=== PATIENT | male | born 1995 | race Caucasian/White ===

== ENCOUNTER 2018-07-04 13:53 | Emergency (ER) | payer OTHER ==
[~2018-07-04] VITALS: Ht 172.7 cm; Wt 74.8 kg
[2018-07-04] MEDS ORDERED: KEFLEX500 M1 PO ×2 (16:03→16:08)
[2018-07-04] MEDS ORDERED: TRAMADOL 50 MG50 MG PO ×2 (16:03→16:08)
[2018-07-04] MEDS ORDERED: IBUPROFEN 600600 M1 PO ×2 (16:03→16:08)
[2018-07-04 16:26] VITALS: BP 125/70
== END 2018-07-04 16:26 | disposition home or self-care (01) ==
LOC: M.ERS 13:53
DX: S61.401A Unspecified open wound of right hand, initial encounter (principal); W32.0XXA Accidental handgun discharge, initial encounter; Y93.89 Activity, other specified; Y92.89 Other specified places as the place of occurrence of the external cause; Y99.8 Other external cause status; Z88.1 Allergy status to other antibiotic agents

== ENCOUNTER 2020-03-15 10:49 | Emergency (ER) | payer BC ==
[~2020-03-15] VITALS: Ht 172.7 cm; Wt 83.9 kg
[~2020-03-15 10:49] MED LIST: IBUPROFEN 600600 M1 PO; KEFLEX500 M1 PO; TRAMADOL 50 MG50 MG PO
[2020-03-15] MEDS ORDERED: NORCO 5-325 TA1 EAC2 PO (11:18)
[2020-03-15] MEDS ORDERED: FLEXERIL PO (11:18)
[2020-03-15] MEDS ORDERED: IBUPROFEN 800800 M1 PO (11:18)
[2020-03-15 11:26] VITALS: BP 120/78
== END 2020-03-15 11:28 | disposition home or self-care (01) ==
LOC: M.ERS 10:49
DX: S13.4XXA Sprain of ligaments of cervical spine, initial encounter (principal); Z88.1 Allergy status to other antibiotic agents; X58.XXXA Exposure to other specified factors, initial encounter; Y93.89 Activity, other specified; Y92.89 Other specified places as the place of occurrence of the external cause; Y99.8 Other external cause status